=== PATIENT | male | born 1940 | race Caucasian/White ===

== ENCOUNTER 2016-06-05 04:10 | Emergency (ER) | payer OTHER ==
[~2016-06-05] VITALS: Ht 172.7 cm; Wt 73.9 kg
[2016-06-05] MEDS ORDERED: LEVOTHYROXINE75 MCG PO (04:43)
[2016-06-05] MEDS ORDERED: SERTRALINE HCL50 MG PO (04:44)
[2016-06-05] MEDS ORDERED: DONEPEZIL HCL10 M1 PO (04:44)
[2016-06-05] MEDS ORDERED: MULTI-VITAMIN1 EACH PO (04:46)
[2016-06-05] MEDS ORDERED: VITAMIN C500 M7 PO (04:46)
[2016-06-05] MEDS ORDERED: ASPIRIN EC81 M1 PO (04:47)
[2016-06-05] MEDS ORDERED: VITAMIN B122500 MC2 PO (04:48)
--- NOTE | 2016-06-05 05:16 | ED AMS/SEIZURE/WEAK/DIZZY ---
History of Present Illness General Chief Complaint: Dizziness Stated Complaint: WOKE UP DIZZY SWEATING AND FELL Source: patient, family Exam Limitations: dementia Vital Signs & Intake/Output Vital Signs & Intake/Output Vital Signs Date Time Temp Pulse Resp B/P Pulse O2 O2 Flow FiO2 Ox Delivery Rate 06/05 0657 99.0 54 18 122/69 98 Room Air 06/05 0558 53 121/59 06/05 0536 96 Room Air 06/05 0420 98.6 48 18 143/69 96 Room Air Allergies Coded Allergies: No Known Drug Allergies (NKDA 06/05/16) Reconcile Medications Ascorbic Acid (Vitamin C) 500 MG CAPSULE.ER 1 CAP PO BID VITAMIN SUPPORT ( Reported) Aspirin (Ecotrin*) 81 MG TABLET.DR 1 TAB PO DAILY HEART HEALTH (Reported) Cyanocobalamin (Vitamin B-12) (Vitamin B12) 2,500 MCG TAB.CHEW 1,000 MCG PO DAILY VITAMIN SUPPORT (Reported) Donepezil HCl 10 MG TABLET 1 TAB PO DAILY MEMORY (Reported) Levothyroxine Sodium 75 MCG TABLET 1 TAB PO DAILY THYROID HEALTH (Reported) Multivitamin (Multi-Vitamin Daily) 1 EACH TABLET 1 TAB PO DAILY VITAMIN SUPPORT (Reported) Sertraline HCl 50 MG TABLET 1 TAB PO DAILY MENTAL HEALTH (Reported) Triage Note: PT TO ED C/O SYCOPAL EPISODE 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 PT STATES WOKE UP SUDDENLY, GOT OUT OF BED AND THEN WOKE UP ON THE FLOOR. SON WAS SLEEPING IN THE ROOM NEXT DOOR AND HEARD THE THUD WHEN PATIENT HIT THE FLOOR. WHEN SON REACHED THE PATIENT, HE WAS VERY DISORIENTED. PER SON "I DON'T THINK HE EVER WENT ALL THE WAY OUT" "I HEARD HIM SPRING OUT OF BED" PT DENIES PAIN. STATES HE FELT COLD AND SWEATY WHEN HE BECAME AWARE. DENIES SOB. DENIES DIZZINESS AT THIS TIME. PMH OF BRADYCARDIA. HR 48-53 ON CM Triage Nurses Notes Reviewed? yes HPI: Patient presents for evaluation of dizziness and gait instability prior to arrival. Patient apparently arose from sleep and was then heard to fall by his son. Upon arrival to the patient's room, the patient's son found him on the floor pale and sweaty. There was no witnessed loss of consciousness. The patient himself denies fever, cold symptoms, tinnitus, chest pain or palpitations. The patient does admit to feeling dizzy and not vertiginous. He states it's of lightheadedness along with unsteady gait. Past History Travel History Traveled to [place] past 21 day No Medical History Any Pertinent Medical History? see below for history Neurological: dementia Gastrointestinal: constipation Psychiatric: depression Endocrine: hypothyroidism Surgical History Surgical History: non-contributory Psychosocial History What is your primary language Estonian Tobacco Use: Quit >30 days ago ETOH Use: denies use Illicit Drug Use: denies illicit drug use Family History Hx Contributory? No Review of Systems Review of Systems Constitutional: Reports: no symptoms. EENTM: Reports: no symptoms. Respiratory: Reports: no symptoms. Cardiovascular: Reports: no symptoms. GI: Reports: no symptoms. Genitourinary: Reports: no symptoms. Musculoskeletal: Reports: no symptoms. Skin: Reports: no symptoms. Neurological/Psychological: Reports: no symptoms. Hematologic/Endocrine: Reports: no symptoms. Immunologic/Allergic: Reports: no symptoms. All Other Systems: Reviewed and Negative Physical Exam Physical Exam General Appearance: see below Comments: Gen.: Well-nourished, well-developed, no acute respiratory distress. Head: Normocephalic, atraumatic. Eyes: Normal inspection bilaterally, PERRLA, EOMI Ears: Normal inspection bilaterally Nose: Normal inspection Throat/mouth : Moist mucosa Neck: Supple, full range of motion, no goiter, no carotid bruits Heart: Regular rate and rhythm, no murmurs rubs or gallops Lungs: Clear to auscultation bilaterally with normal air entry Chest: Nontender Back: Normal range of motion, nontender Abdomen: Soft, nontender, nondistended, normal bowel sounds Extremities: Normal range of motion grossly, equal radial pulses, no cyanosis clubbing or edema, no extremity tenderness Neurologic: Cranial nerves 2 through 12 intact, speech is clear, no dysmetria Skin: warm and dry Psychiatric: Calm, cooperative, no apparent delusions or hallucinations Core Measures ACS in differential dx? No CVA/TIA Diagnosis: No Severe Sepsis Present: No Septic Shock Present: No Progress Differential Diagnosis: anemia, benign positional vertigo, CVA/stroke, dehydration, hypoglycemia, hypoxia Plan of Care: Orders Procedure Date/time Status MISTAKE 06/05 514 Active Telemetry/Freedom Of Information Officer 06/05 514 Active THYROID STIMULATING HORMONE 06/05 514 Complete TROPONIN LEVEL 06/05 514 Complete COMPREHENSIVE METABOLIC PANEL 06/05 514 Complete CBC WITHOUT DIFFERENTIAL 06/05 514 Complete EKG 06/05 416 Active Laboratory Tests 06/05/16524: Anion Gap 7, Estimated GFR > 60, BUN/Creatinine Ratio 21.4, Glucose 99, Calcium 9.4, Total Bilirubin 0.5, AST 20, ALT 31, Alkaline Phosphatase 74, Troponin I < 0.01, Total Protein 6.8, Albumin 4.1, Globulin 2.7, Albumin/Globulin Ratio 1.5, TSH 2.480, CBC w Diff NO MAN DIFF REQ, RBC 4.86, MCV 89.1, MCH 29.3, RDW 14.1, MPV 7.6, Gran % 82.7 H, Lymphocytes % 12.3 L, Monocytes % 3.8, Eosinophils % 0.9, Basophils % 0.3, Absolute Granulocytes 9.4 H, Absolute Lymphocytes 1.4, Absolute Monocytes 0.4, Absolute Eosinophils 0.1, Absolute Basophils 0, PUBS MCHC 32.9 L Diagnostic Imaging: Discussed w/RAD: Radiology Read, CT Scan. Radiology Impression: PATIENT: SAMMY ACUÑA PRESENT AGE: 75 PATIENT ACCOUNT NO: [id number] : 41 LOCATION: [facility] ORDERING PHYSICIAN: JOHN PAUL SAVAGE MD SERVICE DATE: 06/05/16 EXAM TYPE: CAT - CT HEAD WO IV CONTRAST EXAMINATION: CT HEAD WITHOUT CONTRAST CLINICAL INFORMATION: Dizziness and fall. Question CVA. COMPARISON: No relevant prior imaging. TECHNIQUE: Contiguous axial imaging was performed from the skull base to vertex without intravenous administration of contrast. DLP: 600.71 mGy-cm FINDINGS: There is no acute intracranial hemorrhage or abnormal extra-axial collection. No intracranial mass effect or midline shift. Lateral and third ventricles are proportionate to the subarachnoid spaces. No hydrocephalus. There are ill-defined foci of hypoattenuation within the periventricular white matter that most likely represent a chronic manifestation of small vessel ischemia. Devries-white matter differentiation is otherwise preserved and there is no evidence of acute territorial infarct. The calvarium and skull base are intact. Mastoid air cells and middle ear cavities are well aerated. Visualized paranasal sinuses are well-aerated with the exception of mild to moderate disease within the alveolar recesses of the maxillary sinuses. Globes and orbits are symmetric. IMPRESSION: There are chronic small vessel ischemic changes within the periventricular white matter. No evidence of acute territorial infarct or hemorrhage. DICTATED BY: RAVINDRA HUFF MD DATE/TIME DICTATED:06/05/16632 STATISTICAL TECHNICIAN:MARVEL DATE/TIME TRANSCRIBED:06/05/16632 CONFIDENTIAL, DO NOT COPY WITHOUT APPROPRIATE AUTHORIZATION. <Electronically signed in Other Vendor System> SIGNED BY: RAVINDRA HUFF MD 06/05/16638 CXR Impression: PATIENT: SAMMY ACUÑA PRESENT AGE: 75 PATIENT ACCOUNT NO: [id number] : 41 LOCATION: [facility] ORDERING PHYSICIAN: JOHN PAUL SAVAGE MD SERVICE DATE: 06/05/16 EXAM TYPE: RAD - XRY-PORTABLE CHEST XRAY EXAMINATION: XR PORTABLE CHEST CLINICAL INFORMATION: CHF. Effusion. Dizziness status post fall. COMPARISON: No relevant prior imaging. TECHNIQUE: Portable AP upright view of the chest was obtained. FINDINGS: Lungs are well aerated and there is no focal consolidative disease, pleural effusion, or pneumothorax. The cardiac silhouette and upper mediastinal contours are unremarkable. No acute osseous finding. IMPRESSION: Unremarkable chest radiograph. No consolidative disease or effusion. DICTATED BY: RAVINDRA HUFF MD DATE/TIME DICTATED:06/05/16634 STATISTICAL TECHNICIAN:MARVEL DATE/TIME TRANSCRIBED:06/05/16634 CONFIDENTIAL, DO NOT COPY WITHOUT APPROPRIATE AUTHORIZATION. <Electronically signed in Other Vendor System> SIGNED BY: RAVINDRA HUFF MD 06/05/1640 Initial ED EKG: NSR, rate (50) Comments: 06/05/2016 6:54:04 AM I have updated Julio C on his test results. He has no complaint at this time. He lives with his son, who feels comfortable taking the patient home and watching him until follow-up with his primary care physician and/or a benefits consulting analyst on Tuesday. The patient has been relatively bradycardic during his stay but this is not new for him. When he lived in [place], a Holter monitor was ordered for him but he admits that he never wore it. Despite this I feel he is stable for outpatient management. Departure Departure Disposition: HOME OR SELF CARE Condition: Stable Clinical Impression Primary Impression: Fall Qualifiers: Encounter type: initial encounter Qualified Code: W19.XXXA - Unspecified fall, initial encounter Secondary Impressions: Bradycardia Referrals: ANJU UMANZOR,SP PASTRANA (PCP/Family) Additional Instructions: Follow-up with Dr. ELIAS or Sp Bueno MD (benefits consulting analyst) on Tuesday for reevaluation. Since it is unclear as to whether or not Julio C simply fell or had a fainting episode, please return to the emergency department for reevaluation if there are any further episodes or any other concerns/worsening. Please note that there might be incidental findings in your evaluation that are unrelated to the current emergency department visit. Please notify your primary care doctor about this emergency department visit in order to obtain and review all of the testing performed so that these incidental findings can be monitored as needed. If you had an x-ray performed, please understand that some fractures may not be seen on the initial set of x-rays. If your symptoms persist you might need a repeat set of x-rays to check for such a fracture. If you had a laceration evaluated, please understand that foreign bodies such as glass or wood may not be visible to the naked eye or on plain x-rays. If the wound becomes red, swollen, increasingly more painful or if there is any drainage from the wound, please have it reevaluated by a physician for the possibility of a retained foreign body. Thank you for choosing the [facility] Emergency Department for your care. It was a pleasure to serve you today. John Paul Savgae M.D. [facility] Departure Forms: Customer Survey General Discharge Information
[2016-06-05 05:41] LABS: ABSOLUTE BASOPHIL COUNT 0 /CUMM (0.0-0.2); ABSOLUTE EOSINOPHIL COUNT 0.1 /CUMM (0.0-0.7); ABSOLUTE GRANULOCYTE CT 9.4 /CUMM (1.4-6.5); ABSOLUTE LYMPH COUNT 1.4 /CUMM (1.2-3.4); ABSOLUTE MONOCYTE COUNT 0.4 /CUMM (0.10-0.60); BASOPHIL % 0.3 % (0.0-2.0); EOSINOPHIL % 0.9 % (0-5); GRANULOCYTE % 82.7 % (42.2-75.2); HEMATOCRIT 43.3 % (42-52); MEAN CORPUSCULAR HGB 29.3 PG (27.0-31.0); MEAN CORPUSCULAR HGB CONC 32.9 G/DL (33.0-37.0); MEAN CORPUSCULAR VOLUME 89.1 FL (80.0-94.0); MEAN PLATELET VOLUME 7.6 FL (7.4-10.4); PLATELET COUNT 301 /CUMM (130-400); RBC DISTRIBUTION WIDTH 14.1 % (11.5-14.5); RED BLOOD CELL CT 4.86 /CUMM (4.70-6.10); WHITE BLOOD CELL COUNT 11.4 /CUMM (4.8-10.8)
--- NOTE | 2016-06-05 06:39 | CT SCAN REPORT ---
EXAMINATION: CT HEAD WITHOUT CONTRAST CLINICAL INFORMATION: Dizziness and fall. Question CVA. COMPARISON: No relevant prior imaging. TECHNIQUE: Contiguous axial imaging was performed from the skull base to vertex without intravenous administration of contrast. DLP: 600.71 mGy-cm FINDINGS: There is no acute intracranial hemorrhage or abnormal extra-axial collection. No intracranial mass effect or midline shift. Lateral and third ventricles are proportionate to the subarachnoid spaces. No hydrocephalus. There are ill-defined foci of hypoattenuation within the periventricular white matter that most likely represent a chronic manifestation of small vessel ischemia. Devries-white matter differentiation is otherwise preserved and there is no evidence of acute territorial infarct. The calvarium and skull base are intact. Mastoid air cells and middle ear cavities are well aerated. Visualized paranasal sinuses are well-aerated with the exception of mild to moderate disease within the alveolar recesses of the maxillary sinuses. Globes and orbits are symmetric. IMPRESSION: There are chronic small vessel ischemic changes within the periventricular white matter. No evidence of acute territorial infarct or hemorrhage.
--- NOTE | 2016-06-05 06:40 | RADIOLOGY REPORT ---
EXAMINATION: XR PORTABLE CHEST CLINICAL INFORMATION: CHF. Effusion. Dizziness status post fall. COMPARISON: No relevant prior imaging. TECHNIQUE: Portable AP upright view of the chest was obtained. FINDINGS: Lungs are well aerated and there is no focal consolidative disease, pleural effusion, or pneumothorax. The cardiac silhouette and upper mediastinal contours are unremarkable. No acute osseous finding. IMPRESSION: Unremarkable chest radiograph. No consolidative disease or effusion.
[2016-06-05 06:57] VITALS: BP 122/69
== END 2016-06-05 07:09 ==
LOC: ERH 04:10
PROVIDERS: Emergency Medicine
DX: R00.1 Bradycardia, unspecified (principal); Z04.3 Encounter for examination and observation following other accident; W06.XXXA Fall from bed, initial encounter; Y92.9 Unspecified place or not applicable; Y93.9 Activity, unspecified
CPT/HCPCS: 93005; 93010